=== PATIENT | female | born 1945 | race Caucasian/White ===

== ENCOUNTER 2019-05-13 10:45 | Emergency (ER) | payer OTHER ==
[~2019-05-13] VITALS: Ht 165.1 cm; Wt 68.0 kg
[2019-05-13 11:11] LABS: BASOPHILS % 0.9 % (0.0-2.0); EOSINOPHILS % 1.3 % (0.0-5.0); HEMATOCRIT. 34.8 % (36.0-48.0); HEMOGLOBIN. 11.7 g/dL (12.0-16.0); MEAN CORPUSCULAR HEMOGLOBIN 30.4 pg (28.0-32.0); MEAN CORPUSCULAR VOLUME 90.3 fL (81.0-99.0); MEAN PLATELET VOLUME 8.1 fl (7.4-10.4); MONOCYTES % 6.4 % (2.0-8.0); NEUTROPHILS % 41.4 % (40.0-76.0); PLATELET 301 x1000/uL (130-400); RED BLOOD CELL COUNT 3.86 mill/uL (4.2-5.4); RED CELL DISTRIBUTION WIDTH 13.7 % (11.6-14.6)
[2019-05-13 11:18] LABS: PROTHROMBIN TIME 10.1 sec (9.6-11.0)
[2019-05-13 11:20] LABS: CHLORIDE 108 mEq/L (98-107)
[2019-05-13 11:24] LABS: ETHANOL BLOOD < 10 mg/dL
[2019-05-13 11:27] LABS: LDL CHOLESTEROL 87 mg/dL (5-100)
[2019-05-13 14:57] VITALS: BP 122/80
[2019-05-13] MEDS ORDERED: IOHEXOL-350 100 ML BOTTLE ONE (14:58)
== END 2019-05-13 15:15 | disposition short-term general hospital (02) ==
LOC: ER 10:45
DX: G92 Toxic encephalopathy (principal); R55 Syncope and collapse; I95.9 Hypotension, unspecified; G30.9 Alzheimer's disease, unspecified; F02.81 Dementia in other diseases classified elsewhere, unspecified severity, with behavioral disturbance; R41.82 Altered mental status, unspecified
CPT/HCPCS: 36415; 70450; 70496; 70498; 71045; 80053; 80320; 82962; 83721; 83880; 84484; 85025; 85610; 93005; 99285; Q9967; G0480

== ENCOUNTER 2021-02-20 14:59 | Emergency (ER) | payer OTHER ==
[~2021-02-20] VITALS: Ht 172.7 cm; Wt 66.0 kg
[2021-02-20 16:37] LABS: PROTHROMBIN TIME 10.7 sec (9.6-11.0)
[2021-02-20 17:48] LABS: CLARITY URINE CLEAR (CLEAR); COLOR URINE YELLOW (YELLOW); KETONES URINE NEGATIVE (NEGATIVE); LEUKOCYTE ESTERASE URINE 2+ (NEGATIVE); NITRITE URINE NEGATIVE (NEGATIVE); OCCULT BLOOD URINE NEGATIVE (NEGATIVE); PH URINE 6.5 (4.5-8.0); PROTEIN URINE NEGATIVE (NEGATIVE); SPECIFIC GRAVITY URINE 1.013 (1.005-1.030); UROBILINOGEN URINE 0.2 E.U./dL (0.2-1.0)
[2021-02-20 17:49] LABS: CHLORIDE 106 mEq/L (98-107)
[2021-02-20 17:51] LABS: BASOPHILS % 0.7 % (0.0-2.0); EOSINOPHILS % 1.4 % (0.0-5.0); HEMATOCRIT. 33.2 % (36.0-48.0); HEMOGLOBIN. 11.4 g/dL (12.0-16.0); LYMPHOCYTES % 25.9 % (20.0-50.0); MEAN CORPUSCULAR HEMOGLOBIN 30.5 pg (28.0-32.0); MEAN CORPUSCULAR VOLUME 88.7 fL (81.0-99.0); MEAN PLATELET VOLUME 8.9 fl (7.4-10.4); MONOCYTES % 7.7 % (2.0-8.0); NEUTROPHILS % 64.3 % (40.0-76.0); PLATELET 292 x1000/uL (130-400); RED BLOOD CELL COUNT 3.74 mill/uL (4.2-5.4); RED CELL DISTRIBUTION WIDTH 14.4 % (11.6-14.6)
[2021-02-20] MEDS ORDERED: CEFTRIAXONE 1 G PREMIX 50 ML IV NR (19:15)
[2021-02-20 21:03] VITALS: BP 142/73
== END 2021-02-20 21:16 | disposition short-term general hospital (02) ==
LOC: ER 15:28 → EDBEDREQSVC 18:30 → EDBEDREQTM 18:30 → EDBEDREQ 18:30 → ER 21:16 → CANBEDREQ 02-21 07:31
DX: N39.0 Urinary tract infection, site not specified (principal); R55 Syncope and collapse; I95.9 Hypotension, unspecified; E11.9 Type 2 diabetes mellitus without complications; Z20.822 Contact with and (suspected) exposure to COVID-19
CPT/HCPCS: 36415; 70450; 71045; 73502; 80053; 81003; 82962; 83605; 83880; 84145; 84484; 85025; 85610; 87040; 87086; 87426; 96365; 99285; J0696